=== PATIENT | female | born 1960 | race Caucasian/White ===

== ENCOUNTER → 2017-09-13 | Outpatient (CLI) | payer OTHER ==
[~2017-09-13] MED LIST: CYCL10TA6 PO; IBUP-1427 PO; ZVR400 PO
--- NOTE | 2017-09-14 15:08 | MAMMOGRAPHY REPORT ---
BILATERAL DIGITAL SCREENING MAMMOGRAM TOMOSYNTHESIS WITH CAD: 09/13/2017 CLINICAL HISTORY: Routine screening. Patient has no complaints. TECHNIQUE: Breast tomosynthesis in addition to standard 2D mammography was performed. Current study was also evaluated with a Computer Aided Detection (CAD) system. COMPARISON: Comparison is made to exams dated: 10/25/2015 mammogram, 09/13/2015 mammogram, 07/29/2012 mammogram, 07/08/2011 mammogram, 08/30/2009 mammogram - [facility], and 03/14/2008. BREAST COMPOSITION: The tissue of both breasts is heterogeneously dense, which may obscure small mas ses. FINDINGS: There are scattered stable bilateral punctate microcalcifications and a benign coarse calci fication in the left breast. The glandular pattern is similar to prior mammograms. No obvious new m ass, architectural distortion or cluster of suspicious microcalcifications is seen. IMPRESSION: ACR BI-RADS CATEGORY 1: NEGATIVE There is no mammographic evidence of malignancy. A 1 year screening mammogram is recommended. The pa tient will receive written notification of the results. Approximately 10% of breast cancers are not detected with mammography. A negative mammographic report should not delay biopsy if a clinically suggestive mass is present. Kaylie Moreno M.D. ay/:09/13/2017 16:32:22 Barrel Filler: Aysha Thornton M, [facility] letter sent: Normal 1/2 BI-RADS Code: ACR BI-RADS Category 1: Negative
== END | disposition home or self-care (01) ==
LOC: C.MAMM 16:09 → EDSTATUS 16:10 → C.MAMM 16:12
PROVIDERS: ATTEND Internal Medicine
DX: Z12.31 Encounter for screening mammogram for malignant neoplasm of breast (principal)

== ENCOUNTER 2017-09-14 06:23 | Emergency (ER) | payer SELFPAY ==
[~2017-09-14] VITALS: Ht 158.8 cm; Wt 58.0 kg
[2017-09-14 06:27] VITALS: BP 143/88; PULSE 65; TEMP 36.8; O2SAT 100; Ht 158.8 cm; Wt 58.0 kg
--- NOTE | 2017-09-14 06:44 | EMERGENCY ROOM VISIT NOTE ---
History Report prepared by Carito: Luciana Lema Under the Supervision of: Dr. Sky Masterson M.D. First contact with patient: 06:33 Chief Complaint: NECK PAIN Stated Complaint: PAIN/PRESSURE IN NECK,BACK OF HEAD AND SHOULDERS History of Present Illness The patient is a 57 year old female who presents to the Emergency Room with complaints of neck pain beginning 6 weeks ago. The patient rates the pain at a 3 /10. She states that she has also had pressure in her head beginning 5 days ago. She states that the pressure worsened yesterday morning, and states that she has been having trouble sleeping because of the pain. The patient also reports having a swollen lymph node on the right side of her neck. The patient states that 5 weeks ago she was on Acyclovir for 5 days for shingles and then stopped. She also reports trying vitamins for her pain. The patient reports having normal appetite and bowel movements. She denies having urinary symptoms. The patient reports using a heating pain on her abdomen. Source of History: patient Onset: 6 weeks ago Position: neck Symptom Intensity: rated at a 3/10 Associated Symptoms: No urinary symptoms Note: additional symptom: pressure in head, swollen lymph node Review of Systems All systems have been listed, reviewed, and are negative other than those previously mentioned. Please see Additional Medical History Sheet. Past Medical & Surgical Medical Problems: (1) Skin problem (2) Stomach problems Family History Cancer Diabetes mellitus Hypertension Kidney disease Social History Smoking Status: Never Smoker Smokeless Tobacco Use: No Alcohol Use: none Occupation Status: unemployed Current/Historical Medications Scheduled Acyclovir (Acyclovir), 400 MG PO BID Scheduled PRN Cyclobenzaprine Hcl (Flexeril), 10 MG PO TID PRN for neck pain Ibuprofen Tab (Motrin), 600 MG PO Q6H PRN for Pain Allergies Coded Allergies: No Known Allergies (Verified , 09/14/17) Physical Exam Vital Signs Date Time Temp Pulse Resp B/P (MAP) Pulse Ox O2 Delivery O2 Flow Rate FiO2 09/14/17 06:27 36.8 65 18 143/88 100 Room Air Physical Exam GENERAL: Patient awake, alert, oriented x 3. Patient follows commands. Patient does not appear toxic. Patient is adequately hydrated and well- nourished. SKIN: No erythema, pallor, cyanosis or rash HEENT: Normal head, pupils equal, reactive to light and accommodation. Ears normal. Oral cavity and posterior pharynx appear normal. Neck: Without adenopathy, no neck vein distention. Patient has some spasm of the right upper trapezius. LUNGS: Clear to auscultation. No wheezes, no rales, no rhonchi. HEART: No murmurs. No gallops. No rubs ABDOMEN: No masses, no rebound, no hepatomegaly or splenomegaly. Patient has 4 small thermal jose on abdomen. EXTREMITIES: No signs of trauma. NEUROLOGIC: Cranial nerves II-XII within normal limits. No gross motor sensory function deficits. Medical Decision & Procedures ED Course 0637: Past medical records reviewed. The patient was evaluated in room A12B. A complete history and physical examination was performed. 0655: The patient verbalized agreement of the treatment plan. She was discharged home. Medical Decision Nurses notes reviewed. Medical history sheet reviewed. Differential diagnosis includes but is not limited to: cervical adenopathy, infection, neoplasm, degenerative joint disease cervical spine, and muscle spasm. The patient already has had a workup including an ENT appointment. She is now here with tightness in her neck and upper back. She does not have significant cervical adenopathy. Examination is most consistent with muscle spasm. Most likely the patient has some underlying degenerative joint disease in her cervical spine. The patient will be placed on ibuprofen and given a prescription for Flexeril. The patient is to follow-up with her family physician. Medication Reconcilliation Current Medication List: was personally reviewed by me Blood Pressure Screening Patient's blood pressure: Elevated blood pressure Blood pressure disposition: Elevated BP felt to be situational Impression Primary Impression: Degenerative joint disease of cervical spine Additional Impression: Muscle spasms of neck Scribe Attestation The scribe's documentation has been prepared under my direction and personally reviewed by me in its entirety. I confirm that the note above accurately reflects all work, treatment, procedures, and medical decision making performed by me. Departure Information Dispostion Home / Self-Care Prescriptions Cyclobenzaprine Hcl (FLEXERIL) 10 Mg Tab 10 MG PO TID Y for neck pain, #20 TAB Prov: Sky Masterson M.D. 09/14/17 Ibuprofen Tab (MOTRIN) 600 Mg Tab 600 MG PO Q6H Y for Pain, #30 TAB Prov: Sky Masterson M.D. 09/14/17 Referrals [facility] (PCP) Forms HOME CARE DOCUMENTATION FORM, IMPORTANT VISIT INFORMATION, WORK / SCHOOL INSTRUCTIONS Patient Instructions My [facility], Neck Probs Additional Instructions 600 mg ibuprofen every 6 hours until pain in your neck has resolved. One Flexeril every 8 hours as needed for more severe pain in your neck. Do not drive or operate machinery while taking Flexeril. Apply heat intermittently to your neck and upper back. Follow-up at [facility] within the next 2 weeks. Problem Qualifiers
[2017-09-14] MEDS ORDERED: CYCL10TA6 PO (06:52)
[2017-09-14] MEDS ORDERED: IBUP-1427 PO (06:52)
[2017-09-14] MEDS ORDERED: ZVR400 PO (06:59)
== END 2017-09-14 07:04 | disposition home or self-care (01) ==
LOC: C.EDB 06:24 → C.EDA 07:04
DX: M47.812 Spondylosis without myelopathy or radiculopathy, cervical region (principal); M62.838 Other muscle spasm; Z83.3 Family history of diabetes mellitus; Z82.49 Family history of ischemic heart disease and other diseases of the circulatory system